=== PATIENT | male | born 1955 | race Caucasian/White ===

== ENCOUNTER 2018-10-05 18:30 | Inpatient (IN) | payer OTHER ==
[~2018-10-05] VITALS: Ht 177.8 cm; Wt 61.0 kg
[~2018-10-05 18:30] MED LIST: ASPI-817 PO; DOCU250C58 PO; HYDR-3601 PO
[2018-10-05 18:32] VITALS: Ht 177.8 cm; Wt 61.0 kg
[2018-10-05] MEDS ORDERED: KETOROLAC 30 MG INJ IM STA (19:14)
[2018-10-05] MEDS ORDERED: traMADol 50 MG TAB PO ONE (19:30)
[2018-10-05] MEDS ORDERED: morphine 4 MG/ML VIAL IV STA (20:39)
[2018-10-05] MEDS ORDERED: ONDANSETRON 4 MG INJ ONE (20:49)
[2018-10-05] MEDS ORDERED: ONDANSETRON 4 MG INJ IV STA (20:50)
[2018-10-05] MEDS ORDERED: HYDROmorphONE 2 MG/ML SYG IV STA (21:20)
[2018-10-05] MEDS ORDERED: ACETAMINOPHEN 325 MG TAB PO PRN (21:30)
[2018-10-05] MEDS ORDERED: ONDANSETRON 4 MG INJ IV PRN (21:30)
--- NOTE | 2018-10-05 23:03 | ERD ---
ER Documentation Chief Complaint Chief Complaint LEFT LEG PAIN X 2 WEEKS. HPI 62-year-old male presents with left upper leg pain for the last 3 weeks. 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 He did not have an x-ray. He initially had pain on the left lateral aspect of his thigh but over the last few days he has had pain which is worsened and is now having pain in the left groin area. He denies any history of trauma or inciting events. Denies any weakness, deficits, fevers, shortness of breath or chest pain. ROS All systems reviewed and are negative except as per history of present illness. Allergies Allergies: Coded Allergies: No Known Allergy (Unverified , 10/05/18) PMhx/Soc Medical and Surgical Hx: pt denies Medical Hx History of Surgery: Yes (HERNIA REPAIR, CYST REMOVAL) Anesthesia Reaction: No Hx Neurological Disorder: No Hx Respiratory Disorders: No Hx Cardiac Disorders: No Hx Psychiatric Problems: No Hx Miscellaneous Medical Probl: No Hx Alcohol Use: Yes (OCCASIONALLY) Hx Substance Use: No Hx Tobacco Use: No Smoking Status: Never smoker FmHx Family History: No diabetes, No coronary disease, No other Physical Exam Vitals Vital Signs Date Temp Pulse Resp B/P (MAP) Pulse Ox O2 O2 Flow FiO2 Time Delivery Rate 10/05/18 98.2 81 17 138/80 100 Room Air 21:22 (99) 10/05/18 98.5 74 16 127/69 95 18:32 (88) Physical Exam Const: No acute distress Head: Atraumatic Eyes: Normal Conjunctiva ENT: Normal External Ears, Nose and Mouth. Neck: Full range of motion. No meningismus. Resp: Clear to auscultation bilaterally Cardio: Regular rate and rhythm, no murmurs Abd: Soft, non tender, non distended. Normal bowel sounds Skin: No petechiae or rashes Back: No midline or flank tenderness Ext: No cyanosis, or edema. Pain with passive range of motion of left hip and left hip joint area. Minimal pain at the ITB and greater trochanter area. Left lower extremity is neurovascular intact. Neur: Awake and alert Psych: Normal Mood and Affect Result Diagram: 10/05/18203510/05/182035 Results 24 hrs Laboratory Tests Test 10/05/18 20:36 White Blood Count 8.1 10^3/ul Red Blood Count 4.51 10^6/ul Hemoglobin 13.9 g/dl Hematocrit 40.8 % Mean Corpuscular Volume 90.5 fl Mean Corpuscular Hemoglobin 30.8 pg Mean Corpuscular Hemoglobin Concent 34.1 g/dl Red Cell Distribution Width 12.6 % Platelet Count 229 10^3/UL Mean Platelet Volume 8.8 fl Immature Granulocytes % 0.400 % Neutrophils % 64.1 % Lymphocytes % 25.8 % Monocytes % 7.7 % Eosinophils % 1.0 % Basophils % 1.0 % Nucleated Red Blood Cells % 0.0 /100WBC Immature Granulocytes # 0.030 10^3/ul Neutrophils # 5.2 10^3/ul Lymphocytes # 2.1 10^3/ul Monocytes # 0.6 10^3/ul Eosinophils # 0.1 10^3/ul Basophils # 0.1 10^3/ul Nucleated Red Blood Cells # 0.0 10^3/ul Prothrombin Time 12.1 Sec Prothrombin Time Ratio 0.9 INR International Normalized Ratio 0.89 Activated Partial Thromboplast Time 29.0 Sec Sodium Level 137 mmol/L Potassium Level 4.0 mmol/L Chloride Level 101 mmol/L Carbon Dioxide Level 23 mmol/L Anion Gap 13 Blood Urea Nitrogen 9 mg/dl Creatinine 0.78 mg/dl Est Glomerular Filtrat Rate mL/min > 60 mL/min Glucose Level 101 mg/dl Calcium Level 9.5 mg/dl Total Bilirubin 0.7 mg/dl Direct Bilirubin 0.00 mg/dl Indirect Bilirubin 0.7 mg/dl Aspartate Amino Transf (AST/SGOT) 31 IU/L Alanine Aminotransferase (ALT/SGPT) 22 IU/L Alkaline Phosphatase 107 IU/L Total Protein 8.3 g/dl Albumin 4.4 g/dl Globulin 3.90 g/dl Albumin/Globulin Ratio 1.12 Current Medications Medications Dose Sig/Federica Start Time Status Last (Trade) Ordered Route PRN Stop Time Admin Dose Reason Admin Ketorolac 30 mg ONCE STAT 10/05/18 DC 10/05/18 Tromethamine IM 19:14 10/05/18 19:27 (Toradol) 19:16 Tramadol 50 mg ONCE ONCE 10/05/18 DC 10/05/18 HCl PO 19:30 10/05/18 19:26 (Ultram) 19:31 Morphine 4 mg ONCE STAT 10/05/18 DC 10/05/18 Sulfate IV 20:39 10/05/18 20:56 (morphine) 20:40 Ondansetron 4 mg STK-MED 10/05/18 DC HCl (Zofran ONCE .ROUTE 20:49 10/05/18 Inj) 20:50 Ondansetron 4 mg ONCE STAT 10/05/18 DC 10/05/18 HCl (Zofran IV 20:50 10/05/18 20:55 Inj) 20:51 Ondansetron 4 mg BRIDGE ORDER 10/05/18 HCl (Zofran PRN IV 21:30 10/06/18 Inj) NAUSEA/VOMITI 21:29 NG 650 mg ER BRIDGE 10/05/18 Acetaminophen PRN PO 21:30 10/06/18 (Tylenol .MILD PAIN 21:29 Tab) 1-3 OR TEMP 1 mg ONCE STAT 10/05/18 DC 10/05/18 Hydromorphone IV 21:20 10/05/18 21:24 HCl 21:21 (Dilaudid) Procedures/MDM Patient initially given [place] and Toradol. PROCEDURE: Left hip series CLINICAL INDICATION: Left hip pain TECHNIQUE: AP and frog-leg lateral views of the left hip are submitted COMPARISON: None FINDINGS: There is an angulated subcapital fracture of the left femoral neck. There is no evidence of dislocation. Visualized bones the pelvis are intact. . IMPRESSION: Angulated subcapital fracture of the left femoral neck. RPTAT: QQ .Bautista Holbrook MD, MD Date Time Electronically viewed and signed by .Bautista Holbrook MD, on 10/05/2018 19:48 .L/ CC: EWELINA CARMICHAEL MD [id number] PROCEDURE: CT left lower extremity without contrast. CLINICAL INDICATION: Left hip fracture with pain. TECHNIQUE: CT scan of the left lower extremity, with attention to the left hip, without contrast was performed on a multidetector high-resolution CT scann . The patient was scanned without intravenous contrast. Coronal and sagittal reformatted images were obtained from the axial source images. Images were reviewed on a high-resolution PACS workstation. The total exam CTDI equals 18.28 mGy and the total exam DLP equals 558.81 mGy-cm. DICOM images are available. One or more of the following dose reduction techniques were utilized: 1.) Automated exposure control 2.) Adjustment of the mA +/- kV according to patient's size 3.) Use of iterative reconstruction technique. COMPARISON: Left hip plain film series dated today, about 2 hours ago. FINDINGS: Subcapital left femoral neck fracture with mild about 10 mm superior subluxation of the distal fragment and medial impaction of the distal fragment at the femoral head remnant. There is varus angulation of the distal fragment. Degenerative changes seen in the left hip with lateral joint compartment narrowing and chronic bone on bone articulation. The remaining osseous structures are without evident acute fracture. Sigmoid colon diverticulosis is seen. Question small region of fat tethering versus fat necrosis at the proximal left inguinal canal, without evident fat herniation. The partially visualized pelvic viscera is otherwise unremarkable. IMPRESSION: 1. Mildly displaced and impacted subcapital left femoral neck fracture. 2. Degenerative changes at the left hip with chronic bone on bone articulation. RPTAT: [facility] Charlie Aguirre Physician Date Time Electronically viewed and signed by Physician Guanako on 10/05/2018 22:11 RS/ CC: EWELINA CARMICHAEL MD PROCEDURE: XR Chest. CLINICAL INDICATION: Shortness of breath TECHNIQUE: Single portable view of the chest was obtained COMPARISON: No priors for comparison FINDINGS: The trachea is midline. The cardiac silhouette is mildly enlarged and pulmonary vascularity are within normal limits. The lungs are clear. The costophrenic angles are sharp. IMPRESSION: 1. Mild cardiomegaly. No evidence of acute cardiopulmonary disease. RPTAT: [facility] Physician Jordan Date Time Electronically viewed and signed by Jennifer Hernandez Physician on 10/05/2018 21:06 JL/ CC: EWELINA CARMICHAEL MD EKG: Rate/Rhythm: Normal Sinus Rhythm QRS, ST, T-waves: No changes consistent w/ acute ischemia Impression: No evidence of ischemia or arrhythmia CBC shows minimal anemia. CMP shows no acute abnormalities. Urine negative. PT PTT normal. Presents with nontraumatic left hip pain for last 3 weeks with findings of a femoral neck fracture. CT shows no obvious pathologic fracture. Case discussed with Dr. Orlando who will graciously consult on the patient. Further evaluation treatment per inpatient medicine team for perioperative care. Signs and symptoms do not suggest septic arthritis, sepsis, additional concerning signs or symptoms. Departure Diagnosis: Primary Impression: Fx femoral neck Encounter type: initial encounter Fracture type: closed Laterality: left Qualified Codes: S72.002A - Fracture of unspecified part of neck of left femur, initial encounter for closed fracture Condition: Stable EWELINA CARMICHAEL MD Oct 05, 2018 23:03
[2018-10-06 00:45] VITALS: BP 126/70; PULSE 85; RESP 20
[2018-10-06] MEDS ORDERED: ONDANSETRON 4 MG INJ IV PRN (02:00)
[2018-10-06] MEDS ORDERED: ACETAMINOPHEN 325 MG TAB PO PRN (02:00)
[2018-10-06] MEDS ORDERED: NACL 0.9% 3 ML SYG IV SCH (02:00)
[2018-10-06] MEDS ORDERED: ALBUTEROL/IPRATROPIUM (NEB) 3 ML AMP HHN PRN (02:00)
--- NOTE | 2018-10-06 06:16 | HP ---
Date/Time of Note Date/Time of Note DATE: 10/06/18 TIME: 06:11 Assessment/Plan VTE Prophylaxis Pharmacological prophylaxis: heparin Lines/Catheters IV Catheter Type (from Nrsg): Saline Lock Assessment/Plan Assessment/Plan Patient with reported history of iliotibial band syndrome presented with left hip/thigh pain of several weeks duration found to have left femoral neck fracture. PLAN -Pain management -Awaiting Ortho eval Result Diagram: 10/06/18 0420 10/05/18 2036 Results 24hrs Laboratory Tests Test 10/05/18 20:36 10/06/18 04:20 White Blood Count 8.1 9.9 # Red Blood Count 4.51 L 4.23 L Hemoglobin 13.9 L 13.1 L Hematocrit 40.8 L 39.0 L Mean Corpuscular Volume 90.5 92.2 Mean Corpuscular Hemoglobin 30.8 31.0 Mean Corpuscular Hemoglobin Concent 34.1 33.6 Red Cell Distribution Width 12.6 12.8 Platelet Count 229 202 Mean Platelet Volume 8.8 9.5 Immature Granulocytes % 0.400 0.300 Neutrophils % 64.1 66.1 Lymphocytes % 25.8 24.6 Monocytes % 7.7 7.3 Eosinophils % 1.0 1.0 Basophils % 1.0 0.7 Nucleated Red Blood Cells % 0.0 0.0 Immature Granulocytes # 0.030 0.030 Neutrophils # 5.2 6.5 Lymphocytes # 2.1 2.4 Monocytes # 0.6 0.7 Eosinophils # 0.1 0.1 Basophils # 0.1 0.1 Nucleated Red Blood Cells # 0.0 0.0 Prothrombin Time 12.1 Prothrombin Time Ratio 0.9 INR International Normalized Ratio 0.89 Activated Partial Thromboplast Time 29.0 Sodium Level 137 Potassium Level 4.0 Chloride Level 101 Carbon Dioxide Level 23 Anion Gap 13 Blood Urea Nitrogen 9 Creatinine 0.78 Est Glomerular Filtrat Rate mL/min > 60 Glucose Level 101 Calcium Level 9.5 Total Bilirubin 0.7 Direct Bilirubin 0.00 Indirect Bilirubin 0.7 Aspartate Amino Transf (AST/SGOT) 31 Alanine Aminotransferase (ALT/SGPT) 22 Alkaline Phosphatase 107 Total Protein 8.3 H Albumin 4.4 Globulin 3.90 H Albumin/Globulin Ratio 1.12 HPI/ROS Admit Date/Time Admit Date/Time Oct 05, 2018 at 21:06 Hx of Present Illness Patient is a 62-year-old male who was recently diagnosed with iliotibial band syndrome diagnosed a month and half ago was being treated with NSAIDs including IV Toradol injection who presented to the ER complaining of left hip/thigh pain. Pain is been progressively getting worse for over a month. Patient denies trauma. When he presented to the ER, imaging revealed left femoral neck fracture. Patient now unable to bear weight on his left foot. No other complaints PMH/Family/Social Past Medical History Medical History: other (See HPI) Medications Current Medications Ondansetron HCl (Zofran Inj) 4 mg BRIDGE ORDER PRN IV NAUSEA/VOMITING; Start 10/05/18 at 21:30; Stop 10/06/18 at 21:29 Acetaminophen (Tylenol Tab) 650 mg ER BRIDGE PRN PO .MILD PAIN 1-3 OR TEMP; Start 10/05/18 at 21:30; Stop 10/06/18 at 21:29 IV Flush (NS 3 ml) 3 ml PER PROTOCOL IV ; Start 10/06/18 at 02:00 Ondansetron HCl (Zofran Inj) 4 mg Q6H PRN IV NAUSEA/VOMITING; Start 10/06/18 at 02:00 Acetaminophen (Tylenol Tab) 650 mg Q6H PRN PO .PAIN 1-3 OR TEMP; Start 10/06/18 at 02:00 Acetaminophen/ Hydrocodone Bitart ([place] (5/325)) 1 tab Q6H PRN PO .MOD PAIN 4- 6; Start 10/06/18 at 02:00 Acetaminophen/ Hydrocodone Bitart ([place] (5/325)) 2 tab Q6H PRN PO .SEVERE PAIN 7-10; Start 10/06/18 at 02:00 Morphine Sulfate (morphine) 3 mg Q4H PRN IV .SEVERE PAIN 7-10; Start 10/06/18 at 02:00 Heparin Sodium (Porcine) (Heparin (5000 Units/1ml)) 5,000 unit Q12 SC ; Start 10/06/18 at 09:00 Albuterol/ Ipratropium (Duoneb) 3 ml Q2H RESP THERAPY PRN HHN SHORTNESS OF BREATH; Start 10/06/18 at 02:00 Coded Allergies: No Known Allergy (Unverified , 10/05/18) Past Surgical History Past Surgical Hx: other (See HPI) Family History Significant Family History: no pertinent family hx Social History Alcohol Use: none Smoking Status: Never smoker Drug Use: none Exam/Review of Systems Vital Signs Vitals Vital Signs Date Temp Pulse Resp B/P (MAP) Pulse Ox O2 O2 Flow FiO2 Time Delivery Rate 10/06/18 97.7 85 20 126/70 97 00:45 (88) 10/05/18 Room Air 23:57 Exam Constitutional: alert, oriented Head: normocephalic, atraumatic Eyes: EOMI, PERRL Respiratory: clear to auscultation, normal air movement Cardiovascular: regular rate and rhythm, nl pulses Gastrointestinal: soft, non-tender Musculoskeletal: other (Left hip pain) Extremities: normal pulses PJ HARRISON MD Oct 06, 2018 06:16
[2018-10-06 07:16] VITALS: BP 118/59; PULSE 88; RESP 17
[2018-10-06] MEDS: morphine 2 MG INJ IV PRN ×2 (07:36→21:06)
[2018-10-06] MEDS ORDERED: HEPARIN 5,000 UNIT/1 ML VIAL SC SCH (09:00)
[2018-10-06 14:15] VITALS: BP 117/63; PULSE 81; RESP 17
--- NOTE | 2018-10-06 16:29 | PN ---
Date/Time of Note Date/Time of Note DATE: 10/06/18 TIME: 16:14 Assessment/Plan VTE Prophylaxis Risk score (from Ns)>0 risk: 9 SCD applied (from Ns): Yes Pharmacological prophylaxis: NA/contraindicated Pharm contraindication: surgical contra Lines/Catheters IV [facility]from [facility] Saline Lock Urinary Cath still in place: No Assessment/Plan Assessment/Plan 62 yo man, no major PMH, presents with pathologic L hip fracture. #L hip fracture - Not associated with trauma. Patient had progressively worsening pain over 2 days, heard a "pop" while he was walking the day prior to admission. - No constitutional signs or symptoms concerning for malignancy. - During surgery, I recommend a sample should be sent for pathology. - Otherwise the patient has no cardiac or medical history. He reports ability to climb 2 flights of stairs without dyspnea or chest pain (>4 METS). RCRI 0. He is medically optimized for moderate risk orthopedic surgery, no further cardiac or medical workup needed. Result Diagram: 10/06/1841910/06/18419 Subjective 24 Hr Interval Summary Free Text/Dictation No acute overnight events. Pain adequately controlled as long as he doesn't move too much. Exam/Review of Systems Exam Vitals Vital Signs Date Temp Pulse Resp B/P (MAP) Pulse Ox O2 O2 Flow FiO2 Time Delivery Rate 10/06/18 98.3 81 17 117/63 97 14:15 (81) 10/05/18 Room Air 23:57 Exam Constitutional: alert, oriented Head: normocephalic, atraumatic Eyes: EOMI, PERRL Respiratory: clear to auscultation, normal air movement Cardiovascular: regular rate and rhythm, nl pulses Gastrointestinal: soft, non-tender Musculoskeletal: other (Left hip pain) Extremities: normal pulses Results Results 24hrs Laboratory Tests Test 10/05/18 20:36 10/06/18 04:20 White Blood Count 8.1 9.9 # Red Blood Count 4.51 L 4.23 L Hemoglobin 13.9 L 13.1 L Hematocrit 40.8 L 39.0 L Mean Corpuscular Volume 90.5 92.2 Mean Corpuscular Hemoglobin 30.8 31.0 Mean Corpuscular Hemoglobin Concent 34.1 33.6 Red Cell Distribution Width 12.6 12.8 Platelet Count 229 202 Mean Platelet Volume 8.8 9.5 Immature Granulocytes % 0.400 0.300 Neutrophils % 64.1 66.1 Lymphocytes % 25.8 24.6 Monocytes % 7.7 7.3 Eosinophils % 1.0 1.0 Basophils % 1.0 0.7 Nucleated Red Blood Cells % 0.0 0.0 Immature Granulocytes # 0.030 0.030 Neutrophils # 5.2 6.5 Lymphocytes # 2.1 2.4 Monocytes # 0.6 0.7 Eosinophils # 0.1 0.1 Basophils # 0.1 0.1 Nucleated Red Blood Cells # 0.0 0.0 Prothrombin Time 12.1 Prothrombin Time Ratio 0.9 INR International Normalized Ratio 0.89 Activated Partial Thromboplast Time 29.0 Sodium Level 137 137 Potassium Level 4.0 4.9 Chloride Level 101 103 Carbon Dioxide Level 23 28 Anion Gap 13 6 Blood Urea Nitrogen 9 10 Creatinine 0.78 0.81 Est Glomerular Filtrat Rate mL/min > 60 > 60 Glucose Level 101 98 Calcium Level 9.5 9.2 Total Bilirubin 0.7 1.0 Direct Bilirubin 0.00 0.00 Indirect Bilirubin 0.7 1.0 Aspartate Amino Transf (AST/SGOT) 31 28 Alanine Aminotransferase (ALT/SGPT) 22 19 Alkaline Phosphatase 107 95 Total Protein 8.3 H 7.0 # Albumin 4.4 3.7 Globulin 3.90 H 3.30 H Albumin/Globulin Ratio 1.12 1.12 Phosphorus Level 3.9 Magnesium Level 2.2 Medications Medication Current Medications Ondansetron HCl (Zofran Inj) 4 mg BRIDGE ORDER PRN IV NAUSEA/VOMITING; Start 10/05/18 at 21:30; Stop 10/06/18 at 21:29 Acetaminophen (Tylenol Tab) 650 mg ER BRIDGE PRN PO .MILD PAIN 1-3 OR TEMP; S tart 10/05/18 at 21:30; Stop 10/06/18 at 21:29 IV Flush (NS 3 ml) 3 ml PER PROTOCOL IV ; Start 10/06/18 at 02:00 Ondansetron HCl (Zofran Inj) 4 mg Q6H PRN IV NAUSEA/VOMITING; Start 10/06/18 at 02:00 Acetaminophen (Tylenol Tab) 650 mg Q6H PRN PO .PAIN 1-3 OR TEMP; Start 10/06/18 at 02:00 Acetaminophen/ Hydrocodone Bitart ([place] (5/325)) 1 tab Q6H PRN PO .MOD PAIN 4- 6; Start 10/06/18 at 02:00 Acetaminophen/ Hydrocodone Bitart ([place] (5/325)) 2 tab Q6H PRN PO .SEVERE PAIN 7-10; Start 10/06/18 at 02:00 Morphine Sulfate (morphine) 3 mg Q4H PRN IV .SEVERE PAIN 7-10 Last administered on 10/06/18at 07:36; Admin Dose 3 MG; Start 10/06/18 at 02:00 Heparin Sodium (Porcine) (Heparin (5000 Units/1ml)) 5,000 unit Q12 SC Last administered on 10/06/18at 09:02; Admin Dose 5,000 UNIT; Start 10/06/18 at 09:00 Albuterol/ Ipratropium (Duoneb) 3 ml Q2H RESP THERAPY PRN HHN SHORTNESS OF BREATH; Start 10/06/18 at 02:00 MERCY CLEMONS MD Oct 06, 2018 16:25
[2018-10-06] MEDS: HYDROCODONE/APAP (5/325) TAB PO PRN ×2 (17:49→23:59)
--- NOTE | 2018-10-06 17:51 | CONS ---
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 He was complaining of increasing pain invo lving his left hip. He developed pain involving left hip and left proximal thigh about 1-1/2 months ago without any memorable history of trauma. At the time of his initial evaluation in the emergency room about 1-1/2 months ago, he was diagnosed as having iliotibial band syndrome and was treated with Toradol injection; however, no radiologic evaluation was carried out at that time, according to the patient. Because of the increasing pain and difficulties, he finally came to the emergency room on 0 10/05/2018 and following initial evaluation including x-rays of the left hip, he was diagnosed as havi ng fracture involving the femoral neck of the left hip and he was admitted. Denies any major medical or surgical problems in the past. PHYSICAL EXAMINATION: GENERAL: My examination revealed a 62-year-old male who was not in any acute distress. EXTREMITIES: There was tenderness and painful limit of motion involving the left hip. There was a s light shortening of the left lower extremity. There was no evidence of acute neurovascular compromis e involving the left hip. DIAGNOSTIC STUDIES: X-rays of the left hip revealed a presence of subcapital femoral neck fracture i nvolving the left hip. DIAGNOSTIC IMPRESSION: Subcapital fracture of the femoral neck of the left hip. TREATMENT PLAN: To carry out the hemiarthroplasty of the left hip as soon as he can be medically girish ared for surgery. Dictated By: MICTH GUALLPA MD IK/NTS Conf#: [id number] DID#: [id number] CC: PJ HARRISON MD;*EndCC*
[2018-10-06 19:33] VITALS: BP 106/59; PULSE 83; RESP 18
[2018-10-07] VITALS (26 sets, daily range): BP systolic 100–154; BP diastolic 56–78; PULSE 63–100; RESP 10–32
[2018-10-07] MEDS: morphine 2 MG INJ IV PRN ×2 (05:19→09:20)
--- NOTE | 2018-10-07 12:23 | PREAC ---
Date/Time of Note Date/Time of Note DATE: 10/07/18 TIME: 12:21 Anesthesia Eval and Record Evaluation Time Pre-Procedure Interview DATE: 10/07/18 TIME: 12:21 Age 62 Sex male NPO: 8 hrs Preoperative diagnosis left femoral neck fracture. Planned procedure hemiarthroplasty of left hip Past Medical History Past Medical History: None Surgery & Anesthesia Issues No known issue Meds Anticoagulation: No Beta Marie within 24 hr: No Reason Beta Marie not given: Pt. not on B-Marie Current Medications IV Flush (NS 3 ml) 3 ml PER PROTOCOL IV ; Start 10/06/18 at 02:00 Ondansetron HCl (Zofran Inj) 4 mg Q6H PRN IV NAUSEA/VOMITING Last administered on 10/06/18at 21:07; Admin Dose 4 MG; Start 10/06/18 at 02:00 Acetaminophen (Tylenol Tab) 650 mg Q6H PRN PO .PAIN 1-3 OR TEMP; Start 10/06/18 at 02:00 Acetaminophen/ Hydrocodone Bitart ([place] (5/325)) 1 tab Q6H PRN PO .MOD PAIN 4- 6; Start 10/06/18 at 02:00 Acetaminophen/ Hydrocodone Bitart ([place] (5/325)) 2 tab Q6H PRN PO .SEVERE PAIN 7-10 Last administered on 10/06/18at 23:59; Admin Dose 2 TAB; Start 10/06/18 at 02:00 Morphine Sulfate (morphine) 3 mg Q4H PRN IV .SEVERE PAIN 7-10 Last administered on 10/07/18at 09:20; Admin Dose 3 MG; Start 10/06/18 at 02:00 Heparin Sodium (Porcine) (Heparin (5000 Units/1ml)) 5,000 unit Q12 SC Last administered on 10/06/18at 09:02; Admin Dose 5,000 UNIT; Start 10/06/18 at 09:00; Status Hold Albuterol/ Ipratropium (Duoneb) 3 ml Q2H RESP THERAPY PRN HHN SHORTNESS OF BREATH; Start 10/06/18 at 02:00 Meds reviewed: Yes Allergies Coded Allergies: No Known Allergy (Unverified , 10/05/18) Allergies Reviewed: Yes Labs/Studies Labs Reviewed: Reviewed by anesthesiologist Result Diagram: 10/07/18 0419 10/07/18 0420 Laboratory Tests 10/07/18 04:19 10/07/18 04:20 test: N/A Studies: ECG, CXR Pre-procedure Exam Last vitals Vital Signs Date Temp Pulse Resp B/P (MAP) Pulse Ox O2 O2 Flow FiO2 Time Delivery Rate 10/07/18 98.2 67 18 113/62 94 Room Air 08:02 (79) Airway: Adequate mouth opening Mallampati: Mallampati II Teeth: Normal Lung: Normal Heart: Normal ASA Physical Status ASA physical status: 1 Emergency: None Planned Anesthetic General/MAC: ETT Pre-operative Attestations Prior to commencing anesthesia and surgery, the patient was re-evaluated, there was verification of: *The patient's identity *The results of appropriate recent lab work and preoperative vital signs *The above evaluation not changing prior to induction *Anesthetic plan, risk benefits, alternative and complications discussed with patient/family; questions answered; patient/family understands, accepts and wishes to proceed. EDGAR FIGUEROA Oct 07, 2018 12:23
[2018-10-07] MEDS ORDERED: PROPOFOL 20 ML ONE (15:29)
[2018-10-07] MEDS ORDERED: NEOSTIGMINE 3 MG/3 ML SYRINGE ONE (15:29)
[2018-10-07] MEDS ORDERED: CEFAZOLIN 1 GM INJ ONE (15:29)
[2018-10-07] MEDS ORDERED: GLYCOPYRROLATE 0.4 MG INJ ONE (15:29)
[2018-10-07] MEDS ORDERED: ROCURONIUM 50 MG INJ ONE (15:29)
[2018-10-07] MEDS ORDERED: MIDAZOLAM 1 MG/ML 2 ML INJ ONE (15:30)
[2018-10-07] MEDS ORDERED: FENTAnyl 50 MCG/ML VIAL ONE (15:30)
[2018-10-07] MEDS ORDERED: ONDANSETRON 4 MG INJ ONE (15:31)
[2018-10-07] MEDS ORDERED: DEXAMETHASONE 4 MG/ML 5 ML INJ ONE (15:31)
[2018-10-07] MEDS ORDERED: POLYMYXIN/BACITRACIN 1L IRRIG ONE (16:19)
--- NOTE | 2018-10-07 16:35 | HPN ---
Date/Time of Note Date/Time of Note DATE: 10/07/18 TIME: 16:35 Interval H&P Admission Note Pt. seen H&P reviewed: No system changes AUSTYN GUALLPA MD Oct 07, 2018 16:35
[2018-10-07] MEDS ORDERED: morphine SULFATE/PF (10 MG/10 ML) INJ ONE (16:36)
[2018-10-07] MEDS ORDERED: LABETALOL HCL 20MG INJ IV PRN (17:30)
[2018-10-07] MEDS ORDERED: hydrALAzine 20 MG INJ IV PRN (17:30)
[2018-10-07] MEDS ORDERED: FENTAnyl 50 MCG/ML VIAL IV PRN ×3 (17:30)
[2018-10-07] MEDS ORDERED: HYDROmorphONE 1 MG/5 ML IV SYRINGE IV PRN ×3 (17:30)
[2018-10-07] MEDS ORDERED: ONDANSETRON 4 MG INJ IV PRN ×2 (17:30)
[2018-10-07] MEDS ORDERED: EPHEDrine 25 MG/5 ML SYG IV PRN (17:30)
[2018-10-07] MEDS ORDERED: ALBUTEROL 0.083% (NEB) 2.5 MG/3 ML AMP HHN PRN (17:30)
[2018-10-07] MEDS ORDERED: NALOXONE (0.4 MG/ML) INJ IV PRN (17:30)
[2018-10-07] MEDS ORDERED: TRIMETHOBENZAMIDE 100 MG/ML VIAL IM PRN ×2 (17:30)
[2018-10-07] MEDS ORDERED: DIPHENHYDRAMINE 50 MG INJ IV PRN ×2 (17:30)
[2018-10-07] MEDS ORDERED: MIDAZOLAM 1 MG/ML 2 ML INJ IV PRN (17:30)
[2018-10-07] MEDS ORDERED: OXYCODONE/ACETAMINOPHEN (5/325) TAB PO PRN ×2 (17:30)
[2018-10-07] MEDS ORDERED: KETOROLAC 30 MG INJ IV PRN (17:30)
[2018-10-07] MEDS ORDERED: IPRATROPIUM (NEB) 0.5 MG/2.5 ML AMP HHN PRN (17:30)
[2018-10-07] MEDS ORDERED: HYDROmorphONE 0.5 MG/0.5 ML SYG IV PRN ×2 (17:30)
[2018-10-07] MEDS ORDERED: NALBUPHINE HCL (10 MG/1 ML) INJ IV PRN (17:30)
[2018-10-07] MEDS ORDERED: MEPERIDINE 25 MG INJ IV PRN (17:30)
--- NOTE | 2018-10-07 19:23 | PAC ---
Date/Time of Note Date/Time of Note DATE: 10/07/18 TIME: 19:23 Post-Anesthesia Notes Post-Anesthesia Note Last documented vital signs Vital Signs Date Temp Pulse Resp B/P (MAP) Pulse Ox O2 O2 Flow FiO2 Time Delivery Rate 10/07/18 98.2 67 18 113/62 94 Room Air 08:02 (79) Activity: WNL Respiratory function: WNL Cardiovascular function: WNL Mental status: Baseline Pain reasonably controlled: Yes Hydration appropriate: Yes Nausea/Vomiting absent: Yes Lemuel Merino M.D. Oct 07, 2018 19:23
[2018-10-07] MEDS ORDERED: HYDROmorphONE 1 MG/ML SYG IV PRN (19:30)
[2018-10-07] MEDS ORDERED: HYDROCODONE/APAP (10/325) TAB PO PRN (19:30)
[2018-10-07] MEDS ORDERED: NACL 0.9% 3 ML SYG IV SCH (19:30)
--- NOTE | 2018-10-07 19:51 | PN ---
Date/Time of Note Date/Time of Note DATE: 10/07/18 TIME: 19:47 Assessment/Plan VTE Prophylaxis Risk score (from Nsg)>0 risk: 2 SCD applied (from Nsg): Yes Pharmacological prophylaxis: heparin Lines/Catheters IV Catheter Type (from Nrs): Saline Lock Urinary Cath still in place: No Assessment/Plan Hospital Course S: no new complaints, planned for surgery later today Objective : General: A&O x3, answering questions appropriately HEENT: NC/ AT. PERRL. EOM intact Neck: supple CVS: S1, S2, RRR. no murmurs. no pain on chest wall palpation Lungs: CTA b/l. no wheezing or rhonchi Abd: soft, nontender, +BS Ext: L hip pain assessment an plan: 62 yo man, no major PMH, presents with pathologic L hip fracture. #L hip fracture - Not associated with trauma. Patient had progressively worsening pain over 2 days, heard a "pop" while he was walking the day prior to admission. - No constitutional signs or symptoms concerning for malignancy. - imaging suggestive of chronic OA - Otherwise the patient has no cardiac or medical history. He reports ability to climb 2 flights of stairs without dyspnea or chest pain (>4 METS). RCRI 0. He is medically optimized for moderate risk orthopedic surgery, no further cardiac or medical workup needed. Disclaimer: Inadvertent spelling and grammatical errors as well as erroneous comments are likely due to EHR/dictation software use and do not reflect on the quality of delivered patient care. They will be resolved as soon as possible once noted. Also, please note that the electronic time recorded on this node does not necessarily reflect the actual time of the visit. Result Diagram: 10/07/18 0419 10/07/18 0420 Results 24hrs Laboratory Tests Test 10/07/18 04:19 10/07/18 04:20 White Blood Count 6.6 # Red Blood Count 4.13 L Hemoglobin 12.6 L Hematocrit 39.1 L Mean Corpuscular Volume 94.7 Mean Corpuscular Hemoglobin 30.5 Mean Corpuscular Hemoglobin Concent 32.2 Red Cell Distribution Width 13.0 Platelet Count 195 Mean Platelet Volume 9.3 Immature Granulocytes % 0.500 H Neutrophils % 53.6 Lymphocytes % 31.8 Monocytes % 10.3 Eosinophils % 2.7 Basophils % 1.1 Nucleated Red Blood Cells % 0.0 Immature Granulocytes # 0.030 Neutrophils # 3.5 Lymphocytes # 2.1 Monocytes # 0.7 Eosinophils # 0.2 Basophils # 0.1 Nucleated Red Blood Cells # 0.0 Sodium Level 140 Potassium Level 4.9 Chloride Level 104 Carbon Dioxide Level 31 Anion Gap 5 Blood Urea Nitrogen 14 Creatinine 0.89 Est Glomerular Filtrat Rate mL/min > 60 Glucose Level 101 Calcium Level 9.0 Phosphorus Level 4.0 Magnesium Level 2.2 Exam/Review of Systems Exam Vitals Vital Signs Date Temp Pulse Resp B/P (MAP) Pulse Ox O2 O2 Flow FiO2 Time Delivery Rate 10/07/18 80 12 144/64 100 Nasal 3.0 19:36 (90) Cannula 10/07/18 99.8 19:19 Intake and Output 10/06/18 10/06/18 10/07/18 1414:59 22:59 06:59 IntakeIntake Total 50 ml 0 ml OutputOutput Total 350 ml 200 ml BalanceBalance -300 ml -200 ml Results Results 24hrs Laboratory Tests Test 10/07/18 04:19 10/07/18 04:20 White Blood Count 6.6 # Red Blood Count 4.13 L Hemoglobin 12.6 L Hematocrit 39.1 L Mean Corpuscular Volume 94.7 Mean Corpuscular Hemoglobin 30.5 Mean Corpuscular Hemoglobin Concent 32.2 Red Cell Distribution Width 13.0 Platelet Count 195 Mean Platelet Volume 9.3 Immature Granulocytes % 0.500 H Neutrophils % 53.6 Lymphocytes % 31.8 Monocytes % 10.3 Eosinophils % 2.7 Basophils % 1.1 Nucleated Red Blood Cells % 0.0 Immature Granulocytes # 0.030 Neutrophils # 3.5 Lymphocytes # 2.1 Monocytes # 0.7 Eosinophils # 0.2 Basophils # 0.1 Nucleated Red Blood Cells # 0.0 Sodium Level 140 Potassium Level 4.9 Chloride Level 104 Carbon Dioxide Level 31 Anion Gap 5 Blood Urea Nitrogen 14 Creatinine 0.89 Est Glomerular Filtrat Rate mL/min > 60 Glucose Level 101 Calcium Level 9.0 Phosphorus Level 4.0 Magnesium Level 2.2 Imaging Imaging PROCEDURE: CT left lower extremity without contrast. CLINICAL INDICATION: Left hip fracture with pain. TECHNIQUE: CT scan of the left lower extremity, with attention to the left hip, without contrast was performed on a multidetector high-resolution CT scanner. The patient was scanned without intravenous contrast. Coronal and sagittal reformatted images were obtained from the axial source images. Images were reviewed on a high-resolution PACS workstation. The total exam CTDI equals 18.28 mGy and the total exam DLP equals 558.81 mGy-cm. DICOM images are available. One or more of the following dose reduction techniques were utilized: 1.) Automated exposure control 2.) Adjustment of the mA +/- kV according to patient's size 3.) Use of iterative reconstruction technique. COMPARISON: Left hip plain film series dated today, about 2 hours ago. FINDINGS: Subcapital left femoral neck fracture with mild about 10 mm superior subluxation of the distal fragment and medial impaction of the distal fragment at the femoral head remnant. There is varus angulation of the distal fragment. Degenerative changes seen in the left hip with lateral joint compartment narrowing and chronic bone on bone articulation. The remaining osseous structures are without evident acute fracture. Sigmoid colon diverticulosis is seen. Question small region of fat tethering versus fat necrosis at the proximal left inguinal canal, without evident fat herniation. The partially visualized pelvic viscera is otherwise unremarkable. IMPRESSION: 1. Mildly displaced and impacted subcapital left femoral neck fracture. 2. Degenerative changes at the left hip with chronic bone on bone articulation. RPTAT: [facility] Physician [place] Date Time Electronically viewed and signed by Physician Guanako on 10/05/2018 22:11 RS/ CC: EWELINA CARMICHAEL MD [id number] Medications Medication Current Medications IV Flush (NS 3 ml) 3 ml PER PROTOCOL IV ; Start 10/06/18 at 02:00 Ondansetron HCl (Zofran Inj) 4 mg Q6H PRN IV NAUSEA/VOMITING Last administered on 10/06/18at 21:07; Admin Dose 4 MG; Start 10/06/18 at 02:00 Acetaminophen (Tylenol Tab) 650 mg Q6H PRN PO .PAIN 1-3 OR TEMP; Start 10/06/18 at 02:00 Acetaminophen/ Hydrocodone Bitart ([place] (5/325)) 1 tab Q6H PRN PO .MOD PAIN 4- 6; Start 10/06/18 at 02:00 Acetaminophen/ Hydrocodone Bitart ([place] (5/325)) 2 tab Q6H PRN PO .SEVERE PAIN 7-10 Last administered on 10/06/18at 23:59; Admin Dose 2 TAB; Start 10/06/18 at 02:00 Morphine Sulfate (morphine) 3 mg Q4H PRN IV .SEVERE PAIN 7-10 Last administered on 10/07/18at 09:20; Admin Dose 3 MG; Start 10/06/18 at 02:00 Heparin Sodium (Porcine) (Heparin (5000 Units/1ml)) 5,000 unit Q12 SC Last administered on 10/06/18at 09:02; Admin Dose 5,000 UNIT; Start 10/06/18 at 09:00; Status Hold Albuterol/ Ipratropium (Duoneb) 3 ml Q2H RESP THERAPY PRN HHN SHORTNESS OF BREATH; Start 10/06/18 at 02:00 Hydromorphone HCl (Dilaudid) 0.2 mg PACU PRN IV MILD PAIN 1-3; Start 10/07/18 at 17:30; Stop 10/07/18 at 23:00 Hydromorphone HCl (Dilaudid) 0.4 mg PACU PRN IV MOD PAIN 4-6; Start 10/07/18 at 17:30; Stop 10/07/18 at 23:00 Hydromorphone HCl (Dilaudid) 0.6 mg PACU PRN IV SEVERE PAIN 7-10; Start 10/07/18 at 17:30; Stop 10/07/18 at 23:00 Fentanyl (Sublimaze) 25 mcg PACU ORDER PRN IV MILD PAIN 1-3; Start 10/07/18 at 17:30; Stop 10/07/18 at 23:00 Fentanyl (Sublimaze) 50 mcg PACU ORDER PRN IV MOD PAIN 4-6; Start 10/07/18 at 17:30; Stop 10/07/18 at 23:00 Fentanyl (Sublimaze) 75 mcg PACU ORDER PRN IV SEVERE PAIN 7-10; Start 10/07/18 at 17:30; Stop 10/07/18 at 23:00 Oxycodone/ Acetaminophen (Percocet (5/ 325)) 1 tab PACU ORDER PRN PO .PAIN 1-5; Start 10/07/18 at 17:30; Stop 10/07/18 at 23:00 Oxycodone/ Acetaminophen (Percocet (5/ 325)) 2 tab PACU ORDER PRN PO .PAIN 6-10; Start 10/07/18 at 17:30; Stop 10/07/18 at 23:00 Ondansetron HCl (Zofran Inj) 4 mg PACU ORDER PRN IV NAUSEA/VOMITING; Start 10/07/18 at 17:30; Stop 10/07/18 at 23:00 Trimethobenzamide HCl (Tigan) 200 mg PACU ORDER PRN IM NAUSEA/VOMITING; Start at 17:30; Stop 10/07/18 at 23:00 Labetalol HCl (Labetalol) 5 mg PACU ORDER PRN IV HIGH BLOOD PRESSURE; Start 10/07/18 at 17:30; Stop 10/07/18 at 23:00 Hydralazine HCl (Apresoline) 5 mg PACU ORDER PRN IV HIGH BLOOD PRESSURE; Start 10/07/18 at 17:30; Stop 10/07/18 at 23:00 Ephedrine Sulfate 5 mg PACU ORDER PRN IV BLOOD PRESSURE SUPPORT; Start 10/07/18 at 17:30; Stop 10/07/18 at 23:00 Albuterol (Proventil 0.083% (Neb)) 2.5 mg PACU ORDER PRN HHN .WHEEZING; Start 10/07/18 at 17:30; Stop 10/07/18 at 23:00 Ipratropium [place] (Atrovent 0.02% (Neb)) 0.5 mg PACU ORDER PRN HHN .WHEEZING; Start 10/07/18 at 17:30; Stop 10/07/18 at 23:00 Meperidine HCl (Demerol) 25 mg PACU ORDER PRN IV .RIGORS; Start 10/07/18 at 17:30; Stop 10/07/18 at 23:00 Diphenhydramine HCl (Benadryl) 25 mg PACU ORDER PRN IV .PRURITUS; Start 10/07/18 at 17:30; Stop 10/07/18 at 23:00 Midazolam HCl (Versed) 0.5 mg PACU ORDER PRN IV .ANXIETY; Start 10/07/18 at 17:30; Stop 10/07/18 at 23:00 Hydromorphone HCl (Dilaudid) 0.2 mg Q2H PRN IV .PAIN 1-5; Start 10/07/18 at 17:30 Hydromorphone HCl (Dilaudid) 0.4 mg Q2H PRN IV .PAIN 6-10; Start 10/07/18 at 17:30 Ketorolac Tromethamine (Toradol) 30 mg Q6H PRN IV .PAIN 6-10; Start 10/07/18 at 17:30; Stop 10/10/18 at 17:29 Diphenhydramine HCl (Benadryl) 25 mg Q4H PRN IV .PRURITUS; Start 10/07/18 at 1 7:30 Nalbuphine HCl (Nubain) 10 mg Q4H PRN IV .PRURITUS; Start 10/07/18 at 17:30 Ondansetron HCl (Zofran Inj) 4 mg Q6H PRN IV .NAUSEA/VOMITING; Start 10/07/18 at 17:30 Trimethobenzamide HCl (Tigan) 200 mg Q6H PRN IM .NAUSEA/VOMITING; Start 10/07/18 at 17:30 Naloxone HCl (Narcan) 0.2 mg Q2M PRN IV .RESP RATE; Start 10/07/18 at 17:30 Miscellaneous Information (* Miscellaneous Pharmacy Order) DURAMORPH: 0.2 MG SPI... GIVEN NEURAXIAL XX ; Start 10/07/18 at 17:30 MEGA WOOTEN Oct 07, 2018 19:51
--- NOTE | 2018-10-07 20:09 | SIPON ---
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
[2018-10-07] MEDS: CEFAZOLIN 2 GM/50 ML (PMX) 50 ML IVPB SCH (20:39)
[2018-10-07] MEDS: SOD CHLORIDE 0.9% 1,000 ML IV SCH (20:55)
[2018-10-08] MEDS: CEFAZOLIN 2 GM/50 ML (PMX) 50 ML IVPB SCH ×2 (03:59→12:55)
[2018-10-08 04:07] VITALS: BP 113/55; PULSE 74; RESP 20
[2018-10-08 07:55] VITALS: BP 102/57; PULSE 72; RESP 18
[2018-10-08] MEDS: SOD CHLORIDE 0.9% 1,000 ML IV SCH (08:00)
[2018-10-08] MEDS: HYDROCODONE/APAP (5/325) TAB PO PRN ×3 (09:19→21:20)
[2018-10-08] MEDS: ENOXAPARIN 40 MG/0.4 ML SYG SC SCH (09:20)
[2018-10-08 13:59] VITALS: BP 119/56; PULSE 76; RESP 18
[2018-10-08] MEDS ORDERED: BISACODYL (EC) 5 MG TAB PO PRN (14:00)
--- NOTE | 2018-10-08 15:25 | PN ---
Date/Time of Note Date/Time of Note DATE: 10/08/18 TIME: 15:23 Assessment/Plan VTE Prophylaxis Risk score (from Nsg)>0 risk: 12 SCD applied (from Nsg): Yes Pharmacological prophylaxis: LMWH Lines/Catheters IV Catheter Type (from Nrsg): Saline Lock Urinary Cath still in place: Yes Reason Cath still needed: other (indicate) Assessment/Plan Hospital Course S: feels well, was able to ambulate some with PT Objective : General: A&O x3, answering questions appropriately HEENT: NC/ AT. PERRL. EOM intact Neck: supple CVS: S1, S2, RRR. no murmurs. no pain on chest wall palpation Lungs: CTA b/l. no wheezing or rhonchi Abd: soft, nontender, +BS Ext: L hip pain assessment an plan: 62 yo man, no major PMH, presents with pathologic L hip fracture. #L hip fracture - Not associated with trauma. Patient had progressively worsening pain over 2 days, heard a "pop" while he was walking the day prior to admission. - No constitutional signs or symptoms concerning for malignancy. - imaging suggestive of chronic OA - Otherwise the patient has no cardiac or medical history. He reports ability to climb 2 flights of stairs without dyspnea or chest pain (>4 METS). RCRI 0. He is medically optimized for moderate risk orthopedic surgery, no further cardiac or medical workup needed. Dispo: plan to dc home tomorrow with HHPT after ortho clearance Disclaimer: Inadvertent spelling and grammatical errors as well as erroneous comments are likely due to EHR/dictation software use and do not reflect on the quality of delivered patient care. They will be resolved as soon as possible once noted. Also, please note that the electronic time recorded on this node does not necessarily reflect the actual time of the visit. Result Diagram: 10/08/18 0420 10/08/18 0420 Results 24hrs Laboratory Tests Test 10/07/18 20:16 10/08/18 04:20 White Blood Count 9.3 # 9.1 Red Blood Count 3.81 L 3.59 L Hemoglobin 11.8 L 11.1 L Hematocrit 35.7 L 33.9 L Mean Corpuscular Volume 93.7 94.4 Mean Corpuscular Hemoglobin 31.0 30.9 Mean Corpuscular Hemoglobin Concent 33.1 32.7 Red Cell Distribution Width 12.7 12.5 Platelet Count 176 187 Mean Platelet Volume 9.1 9.5 Immature Granulocytes % 0.900 H 0.500 H Neutrophils % 89.5 H 87.3 H Lymphocytes % 7.3 L 7.7 L Monocytes % 1.8 4.3 Eosinophils % 0.1 0.0 Basophils % 0.4 0.2 Nucleated Red Blood Cells % 0.0 0.0 Immature Granulocytes # 0.080 H 0.050 H Neutrophils # 8.3 H 8.0 H Lymphocytes # 0.7 L 0.7 L Monocytes # 0.2 L 0.4 Eosinophils # 0.0 0.0 Basophils # 0.0 0.0 Nucleated Red Blood Cells # 0.0 0.0 Sodium Level 137 140 Potassium Level 4.4 4.5 Chloride Level 103 105 Carbon Dioxide Level 30 27 Anion Gap 4 L 8 Blood Urea Nitrogen 11 12 Creatinine 0.87 0.80 Est Glomerular Filtrat Rate mL/min > 60 > 60 Glucose Level 115 118 Calcium Level 8.9 8.8 Phosphorus Level 4.6 Magnesium Level 2.0 Prostate Specific Antigen 1.5 Exam/Review of Systems Exam Vitals Vital Signs Date Temp Pulse Resp B/P (MAP) Pulse Ox O2 O2 Flow FiO2 Time Delivery Rate 10/08/18 98.3 76 18 119/56 96 Room Air 13:59 (77) 10/07/18 2.0 23:56 Intake and Output 10/07/18 10/07/18 10/08/18 1515:00 23:00 07:00 IntakeIntake Total 2640 ml 650 ml OutputOutput Total 350 ml 150 ml 900 ml BalanceBalance -350 ml 2490 ml -250 ml Results Results 24hrs Laboratory Tests Test 10/07/18 20:16 10/08/18 04:20 White Blood Count 9.3 # 9.1 Red Blood Count 3.81 L 3.59 L Hemoglobin 11.8 L 11.1 L Hematocrit 35.7 L 33.9 L Mean Corpuscular Volume 93.7 94.4 Mean Corpuscular Hemoglobin 31.0 30.9 Mean Corpuscular Hemoglobin Concent 33.1 32.7 Red Cell Distribution Width 12.7 12.5 Platelet Count 176 187 Mean Platelet Volume 9.1 9.5 Immature Granulocytes % 0.900 H 0.500 H Neutrophils % 89.5 H 87.3 H Lymphocytes % 7.3 L 7.7 L Monocytes % 1.8 4.3 Eosinophils % 0.1 0.0 Basophils % 0.4 0.2 Nucleated Red Blood Cells % 0.0 0.0 Immature Granulocytes # 0.080 H 0.050 H Neutrophils # 8.3 H 8.0 H Lymphocytes # 0.7 L 0.7 L Monocytes # 0.2 L 0.4 Eosinophils # 0.0 0.0 Basophils # 0.0 0.0 Nucleated Red Blood Cells # 0.0 0.0 Sodium Level 137 140 Potassium Level 4.4 4.5 Chloride Level 103 105 Carbon Dioxide Level 30 27 Anion Gap 4 L 8 Blood Urea Nitrogen 11 12 Creatinine 0.87 0.80 Est Glomerular Filtrat Rate mL/min > 60 > 60 Glucose Level 115 118 Calcium Level 8.9 8.8 Phosphorus Level 4.6 Magnesium Level 2.0 Prostate Specific Antigen 1.5 Medications Medication Current Medications IV Flush (NS 3 ml) 3 ml PER PROTOCOL IV ; Start 10/06/18 at 02:00 Ondansetron HCl (Zofran Inj) 4 mg Q6H PRN IV NAUSEA/VOMITING Last administered on 10/06/18 21:07; Admin Dose 4 MG; Start 10/06/18 at 02:00 Acetaminophen (Tylenol Tab) 650 mg Q6H PRN PO .PAIN 1-3 OR TEMP; Start 10/06/18 at 02:00 Acetaminophen/ Hydrocodone Bitart ([place] (5/325)) 1 tab Q6H PRN PO .MOD PAIN 4- 6 Last administered on 10/08/18 14:27; Admin Dose 1 TAB; Start 10/06/18 at 02:00 Acetaminophen/ Hydrocodone Bitart ([place] (5/325)) 2 tab Q6H PRN PO .SEVERE PAIN 7-10 Last administered on 10/06/18 23:59; Admin Dose 2 TAB; Start 10/06/18 at 02:00 Morphine Sulfate (morphine) 3 mg Q4H PRN IV .SEVERE PAIN 7-10 Last administered on 10/07/18 09:20; Admin Dose 3 MG; Start 10/06/18 at 02:00 Heparin Sodium (Porcine) (Heparin (5000 Units/1ml)) 5,000 unit Q12 SC Last administered on 8/4/19at 09:02; Admin Dose 5,000 UNIT; Start 10/06/18 at 09:00; Status Hold Albuterol/ Ipratropium (Duoneb) 3 ml Q2H RESP THERAPY PRN HHN SHORTNESS OF BREATH; Start 10/06/18 at 02:00 Hydromorphone HCl (Dilaudid) 0.2 mg Q2H PRN IV .PAIN 1-5; Start 10/07/18 at 17:30 Hydromorphone HCl (Dilaudid) 0.4 mg Q2H PRN IV .PAIN 6-10; Start 10/07/18 at 17:30 Ketorolac Tromethamine (Toradol) 30 mg Q6H PRN IV .PAIN 6-10; Start 10/07/18 at 17:30; Stop 10/10/18 at 17:29 Diphenhydramine HCl (Benadryl) 25 mg Q4H PRN IV .PRURITUS; Start 10/07/18 at 17:30 Nalbuphine HCl (Nubain) 10 mg Q4H PRN IV .PRURITUS; Start 10/07/18 at 17:30 Ondansetron HCl (Zofran Inj) 4 mg Q6H PRN IV .NAUSEA/VOMITING; Start 10/07/18 at 17:30 Trimethobenzamide HCl (Tigan) 200 mg Q6H PRN IM .NAUSEA/VOMITING; Start 10/07/18 at 17:30 Naloxone HCl (Narcan) 0.2 mg Q2M PRN IV .RESP RATE; Start 10/07/18 at 17:30 Miscellaneous Information (* Miscellaneous Pharmacy Order) DURAMORPH: 0.2 MG SPI... GIVEN NEURAXIAL XX ; Start 10/07/18 at 17:30 Hydromorphone HCl (Dilaudid) 1 mg Q3H PRN IV .BREAKTHROUGH PAIN; Start 10/07/18 at 19:30 IV Flush (NS 3 ml) 3 ml per protocol IV ; Start 10/07/18 at 19:30 Enoxaparin Sodium (Lovenox) 40 mg DAILY SC Last administered on 10/08/18at 09:20; Admin Dose 40 MG; Start 10/08/18 at 09:00 Acetaminophen/ Hydrocodone Bitart ([place] (10325)) 1 tab Q4H PRN PO MODERATE PAIN LEVEL 4-6; Start 10/07/18 at 19:30 Bisacodyl (Dulcolax) 10 mg DAILY PRN PO CONSTIPATION Last administered on 10/08/18at 14:07; Admin Dose 10 MG; Start 10/08/18 at 14:00 MEGA WOOTEN Oct 08, 2018 15:25
--- NOTE | 2018-10-08 17:21 | PN ---
DATE: 10/08/2018 First postop day. Afebrile. Postop H and H is 11.1/33.9. Has been up with physical therapy. No ne urovascular compromise. Okay to be discharged any time from orthopedics point for further followup i n 2 weeks as an outpatient. Dictated By: MITCH GUALLPA MD IK/NTS Conf#: [id number] DID#: [id number] CC: MEGA WOOTEN MD; PJ HARRISON MD;*EndCC*
[2018-10-08 20:02] VITALS: BP 104/62; PULSE 78; RESP 18
[2018-10-09 02:05] VITALS: BP 124/69; PULSE 79; RESP 18
[2018-10-09] MEDS: HYDROCODONE/APAP (5/325) TAB PO PRN ×2 (06:35→12:26)
[2018-10-09 07:19] VITALS: BP 130/60; PULSE 90; RESP 17
[2018-10-09] MEDS: ENOXAPARIN 40 MG/0.4 ML SYG SC SCH (09:09)
--- NOTE | 2018-10-09 10:58 | DS ---
Date/Time of Note Date/Time of Note DATE: 10/09/18 TIME: 10:53 Discharge Summary Admission/Discharge Info Admit Date/Time Oct 05, 2018 at 21:06 Discharge Date/Time Discharge Diagnosis 62 yo man, no major PMH, presents with pathologic L hip fracture. #L hip fracture - Not associated with trauma. Patient had progressively worsening pain over 2 days, heard a "pop" while he was walking the day prior to admission. - No constitutional signs or symptoms concerning for malignancy. - imaging suggestive of chronic OA -s/p Patient Condition: Stable Consults Orthopedic surgery : In richard flor MD . Procedures Preoperative Diagnosis femoral neck fracture of left hip Postoperative Diagnosis same Operation/Procedure Performed hemiarthroplasty of left hip . Hospital Course This is a 62-year-old male with no major past medical history, not even for osteoarthritis who had presented with a spontaneous pathologic left hip fracture. He was admitted and underwent hemiarthroplasty of the left hip October 07, 2018, specimens were sent for pathology which is still pending. While in- house patient was noted with a normocytic anemia but otherwise had no other concerning comorbidities. At this time has been cleared by Ortho for discharge with home health physical therapy. Of note is that the PSA was checked and came back normal at 1.5. Patient at this time has been evaluated and examined in detail and is assessed to be in stable condition and ready for discharge. . Follow-up Plan Re: Discharge Meds: Sometimes changes are made to final medication list after discharge summary has been dictated, hence for complete and accurate discharge meds, please review discharge med list in patient's chart. Thank you. Follow-up with Dr. Flor as per his instructions, and also plan to follow-up with your primary care doctor within the next 1 to 2 weeks to notify them of your hospitalization and recent events. If you don't have one please let someone know, we can give you resources that may help you pick one. You may call Dr Nick Hanna's office. he's accepting new patients Name, Degree: Nick Hanna MD Specialty: Internal Medicine Comments: Office Address: [address] [place] [address] [place], [place] [id number] Office Office You may also call your insurance company to assign one to you. Review your medication list with your nurse before leaving and if you need new p rescriptions please let your nurse know. I may have made changes to your home medications or given you new prescriptions, please let your primary doctor know as well. Stay compliant with your medications and report any side effects to your PCP or pharmacist. Return to the ER if you have any concerns and cannot reach your doctors or call your insurance company, they usually have a nurse that can help you. . Primary Care Provider Not On Staff Doctor Time spent on discharge: > 30 minutes Pending Labs Laboratory Tests Test 10/09/18 04:27 White Blood Count 8.1 10^3/ul (4.8-10.8) Red Blood Count 3.05 10^6/ul (4.70-6.10) Hemoglobin 9.3 g/dl (14.0-18.0) Hematocrit 29.0 % (42.0-52.0) Mean Corpuscular Volume 95.1 fl (82.0-101.0) Mean Corpuscular Hemoglobin 30.5 pg (29.0-33.0) Mean Corpuscular Hemoglobin Concent 32.1 g/dl (32.0-37.0) Red Cell Distribution Width 12.7 % (11.5-14.5) Platelet Count 162 10^3/UL (140-415) Mean Platelet Volume 9.6 fl (7.4-10.4) Immature Granulocytes % 0.400 % (0.001-0.429) Neutrophils % 62.5 % (39.0-77.0) Lymphocytes % 23.2 % (15.0-51.0) Monocytes % 12.7 % (0.0-11.0) Eosinophils % 0.5 % (0.0-7.0) Basophils % 0.7 % (0.0-2.0) Nucleated Red Blood Cells % 0.0 /100WBC (0.0-0.0) Immature Granulocytes # 0.030 10^3/ul (0.0-0.031) Neutrophils # 5.1 10^3/ul (1.6-7.5) Lymphocytes # 1.9 10^3/ul (0.8-2.9) Monocytes # 1.0 10^3/ul (0.3-0.9) Eosinophils # 0.0 10^3/ul (0.0-0.5) Basophils # 0.1 10^3/ul (0.0-0.1) Nucleated Red Blood Cells # 0.0 10^3/ul (0.0-0.0) Sodium Level 138 mmol/L (135-144) Potassium Level 4.8 mmol/L (3.5-5.1) Chloride Level 104 mmol/L (97-110) Carbon Dioxide Level 32 mmol/L (21-31) Anion Gap 2 (5-13) Blood Urea Nitrogen 18 mg/dl (7-20) Creatinine 0.98 mg/dl (0.61-1.24) Est Glomerular Filtrat Rate mL/min > 60 mL/min (>60) Glucose Level 119 mg/dl (70-220) Calcium Level 8.5 mg/dl (8.4-10.2) MEGA WOOTEN Oct 09, 2018 10:58
--- NOTE | 2018-10-09 12:46 | PDOCDIS ---
Discharge Instructions CONDITION [id number] Patient Condition: [id number] Stable HOME CARE INSTRUCTIONS: [id number] Diet Instructions: [id number] Regular ACTIVITY: [id number] Activity Restrictions: [id number] Slowly Increase Activity Rest between Activity Avoid heavy lifting Do not Drive Do not operate Machinery Do not operate Power Tool Avoid Heavy Housework [id number] Bathing Restrictions: [id number] Shower FOLLOW UP/APPOINTMENTS Follow-up Plan Re: Discharge Meds: Sometimes changes are made to final medication list after discharge summary has been dictated, hence for complete and accurate discharge meds, please review discharge med list in patient's chart. Thank you. Follow-up with Dr. Orlando as per his instructions, and also plan to follow-up with your primary care doctor within the next 1 to 2 weeks to notify them of your hospitalization and recent events. If you don't have one please let someone know, we can give you resources that may help you pick one. You may call Dr Nick Hanna's office. he's accepting new patients Name, Degree: Nick Hanna MD Specialty: Internal Medicine Comments: Office Address: [address] [place] [address] Office Office You may also call your insurance company to assign one to you. Review your medication list with your nurse before leaving and if you need new prescriptions please let your nurse know. I may have made changes to your home medications or given you new prescriptions, please let your primary doctor know as well. Stay compliant with your medications and report any side effects to your PCP or pharmacist. Return to the ER if you have any concerns and cannot reach your doctors or call your insurance company, they usually have a nurse that can help you. . SCHOOL/WORK RELEASE May return to School/Work on: Oct 28, 2018 May return to School/Work with: School/Work Release Comment: Patient to determine if /any restrictions based on how he is feeling. MEGA WOOTEN Oct 09, 2018 12:46
[2018-10-09 13:47] VITALS: BP 114/58; PULSE 99; RESP 18
--- NOTE | 2018-10-10 12:03 | OPR ---
DATE OF OPERATION: 10/07/2018 PREOPERATIVE DIAGNOSIS: Femoral neck fracture of the left hip. POSTOPERATIVE DIAGNOSIS: Femoral neck fracture of the left hip. OPERATION PERFORMED: Hemiarthroplasty of the left hip. ANESTHESIA: General anesthesia. SURGEON: Mitch Orlando MD PROCEDURE AND FINDINGS: Under general anesthesia, the patient was placed with piece Under anesthesia , the patient was placed on right lateral decubitus position with the left side up. Usual prep and d rape was done exposing the left hip and left lower extremity. Left hip was approached through the usual posterolateral incision. After splitting the muscle, the h ip joint was entered. The examination revealed that there indeed was a subcapital femoral neck fract ure. The head was removed and the measurement revealed that the size of the head is about 48-49 mm i n diameter. It was noted that this patient did have an unusually thick and large ligamentum teres an d along with the unusual dense bone and unusual history of having fracture without memorable trauma. The specimen was obtained from ligamentum teres and this was sent to the pathologist for further pat hologic evaluation. Also because of the unusual density and hardness of the bone, femoral head was a lso sent to pathology for pathological examination. A trial reduction was carried out with trial bip olar hip component and 49 mm appears to be providing the best fit. After packing the acetabular cavi ty, attention was then directed to the proximal femur using a box osteotome. The area was opened and the intramedullary canal was identified with the canal finder. However, again because of the extrem e bony density or osteopetrosis, it was rather difficult to find the canal and following initial gerry tment for preparation with broaches, intraoperative x-ray had to be obtained to confirm the satisfact ory position of the brace further preparation was carried out with increasing size of the broaches. Finally, with the size 6 broach in, trial components were assembled and the joint was reduced and jessica juan alberto. After several trials, it was my impression that size 6 stem with the 0 neck and 49 mm cup was p roviding best fit. The gross evaluation of the leg length seems to be satisfactory. After removing all the trial components, actual stem in the size 6 in a standard setting was pounded in and this was connected to 0 neck, 49 bipolar cup. Joint was reduced. Range of motion and stabili ty were entirely satisfactory. After irrigation and hemostasis, the short external rotator was reatt ached. Further closure was carried out using 0 PDS for capsule and #1 Vicryl for muscle and fascia f or the further closure after subcuticular tissue closure with the 2-0 Vicryl. Final skin closure was carried out with skin fidelina. The patient tolerated the entire procedure very well and was sent to the recovery room in excellent c ondition. Dictated By: MITCH BONNER/TERRI Conf#: [id number] DID#: [id number] CC: PJ HARRISON MD;*EndCC*
== END 2018-10-09 17:20 | disposition home health service (06) | DRG 470 ==
LOC: FTE 18:30 → MS1 21:06
PROVIDERS: ADMIT Internal Medicine; ATTEND Family Medicine
PROC: 0SRS01Z Replacement of Left Hip Joint, Femoral Surface with Metal Synthetic Substitute, Open Approach (ICD-10-PCS; principal; 2018-10-07 16:40)
DX: M80.052A Age-related osteoporosis with current pathological fracture, left femur, initial encounter for fracture (principal)
CPT/HCPCS: 36415; 71045; 73500; 73510; 73530; 73700; 80048; 80053; 83735; 84100; 84153; 84154; 85025; 85610; 85730; 88304; 88311; 93005; 96372; 96374; 96375; 97116; 97161; 97167; 97530; J0690; J1100; J1170; J1644; J1650; J1885; J2250; J2270; J2274; J2405; J2710; J3010; J7030